=== PATIENT | male | born 1960 ===

== ENCOUNTER 2021-02-15 05:48 | Inpatient (IN) | payer MEDICARE ==
[2021-02-15] MEDS: LISINOPRIL 40 MG TAB PO SCH (22:50)
[2021-02-15] MEDS: QUEtiapine 100 MG TAB PO SCH (22:51)
[2021-02-15] MEDS: traMADol 50 MG TAB PO PRN (22:51)
[2021-02-15] MEDS: PHENYTOIN 100 MG/4 ML ORAL.LIQD PO SCH (22:51)
[2021-02-16] MEDS: PHENYTOIN 100 MG/4 ML ORAL.LIQD PO SCH (05:51)
--- NOTE | 2021-02-16 08:14 | History and Physical Report ---
GP History & Physical - History of Present Illness Date of admission: 02/16/21 History of Present Illness: Per Nurse Note: Behaviors and assessment findings upon admission: [1810 A 60 year old male admitted to [facility], A/O X3, SI/HI with no plan, has been off his medications foe months. Allergic to Risperdal, hx of hypoglycermia and neck surgery. Skin WARM, DRY, INTACT, OLD SCARS AT THE BACK OF HIS NECK,RT. THUMB, RT, left breast, MEDIAL foot scar, lt upper leg scar, stretch butler on bilat upper chest area and small scabs on rt. leg [place] on rt 2nd toe, and lst and 2nd right toes amputations. Pt's belongings contained bugs, are in house keeing closet by the elevators. Valuables sent to security. Staff will continue to monitor. Heaven Saldaña is a 60 year old male admitted from [facility] for SI/HI. In my interview with patient he reports history of Schizophrenia, and Bipolar with multiple inpatient psych admissions. Patient is talkative. Patient reports using Cocaine a week ago when was angry with a couple who disrespected him " I really wanted to hurt them." Patient states" I have been going through a lot and I just got fed up with people; I can't trust people." The patient endorses auditory and states he has intermittent visual hallucinations; patient states voices is telling him " I got to deal with the situation." Patient denies suicidal/homicidal ideation. PAST PSYCHIATRIC HISTORY Diagnoses: schizophrenia, Bipolar Suicide attempts or Self-harm behavior: Denies Prior psychiatric hospitalizations: Multiple Substance Abuse history: Cocaine Previous psychiatric medications tried: [place], Zyprexa Outpatient treatment: yes PAST MEDICAL HISTORY: Hypertension, Neck Surgery, Hypoglycemia Family Psychiatric History: None reported or documented SOCIAL HISTORY Marital Status: Single Living Arrangements: alone Employment Status: Disabled Access to guns/weapons: None reported Education: 11th grade History of Abuse:None reported Legal History: None reported REVIEW OF SYSTEMS Constitutional: Negative for weight loss ENT: Negative for stridor Respiratory: Negative for cough or hemoptysis All other systems reviewed and are negative MENTAL STATUS EXAMINATION General Appearance and Behavior: Age appropriate, dressed appropriately, good eye contact Cooperation: Participating/engaged, but Guarded Psychomotor Behavior: Psychomotor normal Mood: angry Affect and affective range: congruent with states mood Thought Process: illogical Thought Content: Tangential Speech: hyperverbal, flight of ideas, increased tone and pace Intellectual Functioning: Average Suicidal Ideation: Denies SI Homicidal Ideation: Denies HI Hallucinations: auditory and visual Delusions: Yes Impulse Control: Impaired Insight and Judgment: Limited insight and judgment Memory: Impaired Attention: Destractible Orientation: Alert, oriented Assessment and Plan (1)Schizophrenia Current Visit: Yes Status: Acute Treatment Plan Patient admitted for inpatient psychiatric evaluation, medication adjustment and close monitoring The patient's behavior, mood, sleep and appetite will be closely monitored. Patient enrolled in individual and group therapeutic sessions and encouraged to attend. Patient provided with a safe and structured environment. Patient's physical health needs will be addressed by the Hospitalist. Hospitalist Consulted Labs including CBC, CMP, Lipid profile and Hemoglobin A1C levels ordered for baseline reference Social Assessment will be completed and the Statistical Developer will work with patient and family to ensure a suitable and safe disposition Medication adjustment will be made as clinically indicated Start- Seroquel 100mg po BID Start- Zyprexa 5mg po OHS Start- Dilantin 100mg po Q8 hrs Start-tramadol 50mg po Q6 hrs PRN Start Lisinopril 40mg po daily Usual Wellness Sabianism/Preservation: - Start Trazodone 50 mg po QHS & 50 mg po QHS PRN between 10 PM & 2 AM for insomnia - Start Melatonin 5 mg po QHS to promote circadian rhythm - Start [place]-3 for brain health, reduce impulsivity, and as adjunctive treatment for mood disorder, continue upon discharge given overall benefits. - Start B1 prophylaxis with 200 mg po for 5 days The patient agreed on the treatment plan, understood the risk, benefit, alternative treatment, potential consequence of no treatment, and gave informed consent. Initial Certification Inpatient psych services: I certify that the inpatient psychiatric services are required for treatment that could reasonably be expected to improve the patient's condition. Estimated days: 7 Legal Status: Voluntary Patient Problems: Schizophrenia Current Active Problems (Acute) Reaction to Hospitalization: Accepting Medications and Allergies Medications and Allergies Allergies Allergy/AdvReac Type Severity Reaction Status Date / Time risperidone [From Risperdal] Allergy Unknown Unverified 02/15/21 10:17 Home Medications Medication Instructions Recorded Confirmed Last Taken Type FLUoxetine [PROzac] 20 mg PO DAILY 02/16/21 02/16/21 Unknown History OLANzapine [ZyPREXA] 5 mg PO HS 02/16/21 02/16/21 Unknown History Phenytoin [Dilantin] 100 mg PO TID 02/16/21 02/16/21 Unknown History QUEtiapine [SEROquel] 100 mg PO BID 02/16/21 02/16/21 Unknown History lisinopriL [Zestril TAB] 40 mg PO DAILY 02/16/21 02/16/21 Unknown History traMADoL [Ultram 50 MG tab] 50 mg PO Q6HR PRN 02/16/21 02/16/21 Unknown History Active Meds: Active Medications Lisinopril (Lisinopril 40 Mg Tab) 40 mg PO QDAY [facility] Last Admin: 02/15/21 22:50 Dose: 40 mg Documented by: Olanzapine (Olanzapine 5 Mg Tab) 5 mg PO HS [facility] Last Admin: 02/15/21 22:51 Dose: 5 mg Documented by: Phenytoin (Phenytoin 100 Mg/4 Ml Oral.Liqd) 100 mg PO Q8HR [facility] Last Admin: 02/16/21 05:51 Dose: 100 mg Documented by: Quetiapine Fumarate (Quetiapine 100 Mg Tab) 100 mg PO BID [facility] Last Admin: 02/15/21 22:51 Dose: 100 mg Documented by: Tramadol HCl (Tramadol 50 Mg Tab) 50 mg PO Q6H PRN PRN Reason: Pain, Moderate (4-6) Last Admin: 02/15/21 22:51 Dose: 50 mg Documented by: Results - Results Labs/Vitals: Laboratory Last Values POC Glucose 101 mg/dL (70-105) 02/16/21 06:13 Last Vital Signs Temp 98.2 F 02/15/21 22:00 Pulse 52 L 02/15/21 22:50 Resp 18 02/15/21 22:00 BP 154/95 02/15/21 22:50 Pulse Ox Physical Examination - Constitutional Vitals: Vital Signs Temp Pulse Resp BP Pulse Ox 98.2 F 52 L 18 154/95 02/15/21 22:00 02/15/21 22:50 02/15/21 22:00 02/15/21 22:50 Temperature -Last 24 Hours Temperature 98.2 F Mental Status Exam - Vital signs Last Vital Signs Temp 98.2 F 02/15/21 22:00 Pulse 52 L 02/15/21 22:50 Resp 18 02/15/21 22:00 BP 154/95 02/15/21 22:50 Pulse Ox Physician Certification - Certification Statement Physician Certification Statement: This is an acknowledgement statement that HEAVEN SALDAÑA is a 60 year old M who requires inpatient psychiatric admission for treatment which could reasonably be expected to improve the patient's condition for Estimated period of time patient will need to remain in the hospital: [ ] Plan for post-hospital care: [ ]
[2021-02-16] MEDS ORDERED: traMADol 50 MG TAB PO PRN (09:29)
[2021-02-16] MEDS: QUEtiapine 100 MG TAB PO SCH ×2 (09:31→21:28)
[2021-02-16] MEDS: LISINOPRIL 40 MG TAB PO SCH (09:35)
[2021-02-16] MEDS ORDERED: LISINOPRIL 40 MG TAB PO SCH (10:00)
[2021-02-16] MEDS ORDERED: QUEtiapine 100 MG TAB PO SCH (10:00)
[2021-02-16] MEDS: FLUoxetine 20 MG CAP PO SCH (10:31)
[2021-02-16] MEDS: PHENYTOIN 100 MG CAPSULE.ER PO SCH ×2 (13:10→21:27)
[2021-02-16] MEDS: traMADol 50 MG TAB PO PRN (21:30)
[2021-02-17] MEDS: traMADol 50 MG TAB PO PRN ×2 (04:22→19:00)
--- NOTE | 2021-02-17 07:46 | Progress Note ---
Subjective Date of service: 02/17/21 Subjective Comment: Per Nurse Note: Last evening the patient was angry about multiple things. He wrote a list of his complaints and they were put in the gunstock spray unit adjuster's box. He wanted his shoes, jewelry, and clothes from his bag. It was reported to this underwriter solicitation director that his bag has bugs in it. Patient was living in a motel but now states he is homeless. Patient was provided with safety socks and clean scrubs to wear on the unit. He is still unhappy and is upsetting his peers with his behavior. Patient reports si/hi with no plan. Patient has a good appetite and is medication compliant. He asked for PRN Ultram for neck pain at bedtime. It was effective and patient slept. Overnight the patient slept about 4 hours. He then came in and out of his room. He looked sleepy and unsteady on his feet. He wanted to shower at 0300. Patient was redirected that it is too early to shower. He returned to his room and came out around 0430 requesting Ultram again. It was given. Patient stated he needed an x-ray of his neck. He slept around an hour and was up again asking for towels. Patient is too sedated and unsteady and will be given towels later. Will continue to monitor patient for safety. I interviewed the patient this morning. Medical records reviewed and patient's progress was discussed with unit staff. In my interview with the patient this morning, the patient reports he is feeling better. Patient continues to complain about his clothes and shoes; this underwriter solicitation director discussed patient's complain with the staff. Patient reports mood as "Ok" states he was having racing thoughts and AVHs but states it is "slowing down." Appetite is good. Sleep last night was fair. Patient denies current SI/HI, but continues to have intermittent AVH's. REVIEW OF SYSTEMS Constitutional: Negative for weight loss ENT: Negative for stridor Respiratory: Negative for cough or hemoptysis All other systems reviewed and are negative MENTAL STATUS EXAMINATION General Appearance and Behavior: Age appropriate, dressed appropriately, good eye contact Cooperation: Participating/engaged, but Guarded Psychomotor Behavior: Psychomotor normal Mood: "OK" Affect and affective range: congruent with states mood Thought Process: illogical Thought Content: obsessions Speech: hyperverbal, flight of ideas, increased tone and pace Intellectual Functioning: Average Suicidal Ideation: Denies SI Homicidal Ideation: Denies HI Hallucinations: Auditory and Visual Delusions: Yes Impulse Control: Impaired Insight and Judgment: Limited insight and judgment Memory: Impaired Attention: Destractible Orientation: Alert, oriented Assessment and Plan (1)Schizophrenia Current Visit: Yes Status: Acute Treatment Plan Patient admitted for inpatient psychiatric evaluation, medication adjustment and close monitoring The patient's behavior, mood, sleep and appetite will be closely monitored. Patient enrolled in individual and group therapeutic sessions and encouraged to attend. Patient provided with a safe and structured environment. Patient's physical health needs will be addressed by the Hospitalist. Hospitalist Consulted Labs including CBC, CMP, Lipid profile and Hemoglobin A1C levels ordered for baseline reference Social Assessment will be completed and the Senior Nurse Manager will work with patient and family to ensure a suitable and safe disposition Medication adjustment will be made as clinically indicated Continue- Seroquel 100mg po BID Continue- Zyprexa 5mg po OHS Copntinue- Dilantin 100mg po Q8 hrs Continue-Tramadol 50mg po Q6 hrs PRN Continue- Lisinopril 40mg po daily Usual Wellness Advent/Preservation: - Start Trazodone 50 mg po QHS & 50 mg po QHS PRN between 10 PM & 2 AM for insomnia - Start Melatonin 5 mg po QHS to promote circadian rhythm - Start [place]-3 for brain health, reduce impulsivity, and as adjunctive zach tment for mood disorder, continue upon discharge given overall benefits. - Start B1 prophylaxis with 200 mg po for 5 days The patient agreed on the treatment plan, understood the risk, benefit, alte rnative treatment, potential consequence of no treatment, and gave informed consent. Initial Certification Inpatient psych services: I certify that the inpatient psychiatric services are required for treatment that could reasonably be expected to improve the patient's condition. Estimated days: 5 Legal Status: Voluntary Patient Problems: Schizophrenia Current Active Problems (Acute) Reaction to Hospitalization: Accepting Medications and Allergies Medications and Allergies Allergies Allergy/AdvReac Type Severity Reaction Status Date / Time risperidone [From Risperdal] AdvReac Intermediate Unknown Verified 02/16/21 22:45 Home Medications Medication Instructions Recorded Confirmed Last Taken Type FLUoxetine [PROzac] 20 mg PO DAILY 02/16/21 02/16/21 Unknown History OLANzapine [ZyPREXA] 5 mg PO HS 02/16/21 02/16/21 Unknown History Phenytoin [Dilantin] 100 mg PO TID 02/16/21 02/16/21 Unknown History QUEtiapine [SEROquel] 100 mg PO BID 02/16/21 02/16/21 Unknown History lisinopriL [Zestril TAB] 40 mg PO DAILY 02/16/21 02/16/21 Unknown History traMADoL [Ultram 50 MG tab] 50 mg PO Q6HR PRN 02/16/21 02/16/21 Unknown History Active Meds: Active Medications Fluoxetine HCl (Fluoxetine 20 Mg Cap) 20 mg PO DAILY [facility] Last Admin: 02/16/21 10:31 Dose: 20 mg Documented by: Lisinopril (Lisinopril 40 Mg Tab) 40 mg PO QDAY [facility] Last Admin: 02/16/21 09:35 Dose: Not Given Documented by: Olanzapine (Olanzapine 5 Mg Tab) 5 mg PO HS [facility] Last Admin: 02/16/21 21:28 Dose: 5 mg Documented by: Phenytoin (Phenytoin 100 Mg Capsule.Er) 100 mg PO TID [facility] Last Admin: 02/16/21 21:27 Dose: 100 mg Documented by: Quetiapine Fumarate (Quetiapine 100 Mg Tab) 100 mg PO BID [facility] Last Admin: 02/16/21 21:28 Dose: 100 mg Documented by: Tramadol HCl (Tramadol 50 Mg Tab) 50 mg PO Q6H PRN PRN Reason: Pain, Moderate (4-6) Last Admin: 02/17/21 04:22 Dose: 50 mg Documented by: Results - Results Labs/Vitals: Laboratory Last Values POC Glucose 94 mg/dL (70-105) 02/17/21 07:21 Last Vital Signs Temp 98.0 F 02/16/21 19:43 Pulse 58 L 02/16/21 19:43 Resp 16 02/17/21 04:22 BP 132/83 02/16/21 19:43 Pulse Ox 96 02/16/21 19:43
[2021-02-17] MEDS: PHENYTOIN 100 MG CAPSULE.ER PO SCH ×3 (09:15→21:06)
[2021-02-17] MEDS: QUEtiapine 100 MG TAB PO SCH ×2 (09:15→21:06)
[2021-02-17] MEDS: FLUoxetine 20 MG CAP PO SCH (09:15)
[2021-02-17] MEDS: LISINOPRIL 40 MG TAB PO SCH (09:16)
[2021-02-18 00:02] LABS: Basophils % (Auto) 0.4 % (0.0-1.8); Eosinophils # (Auto) 0.2 K/mm3 (0.0-0.4); Eosinophils % (Auto) 4.2 % (0.0-4.3); Hemoglobin 12.6 gm/dl (11.8-15.2); Lymphocytes # (Auto) 1.7 K/mm3 (1.2-5.4); Lymphocytes % (Auto) 38.9 % (13.4-35.0); Mean Corpuscular HGB Conc 32 % (32-34); Mean Corpuscular Volume 77 fl (84-94); Monocytes # (Auto) 0.3 K/mm3 (0.0-0.8); Monocytes % (Auto) 6.9 % (0.0-7.3); Platelet Count 171 K/mm3 (140-440); Red Blood Count 5.22 M/mm3 (3.65-5.03)
[2021-02-18 00:26] LABS: Hepatitis B Surface Antigen Non-Reactive (Negative); Hepatitis C Virus Antibody Non-Reactive (NonReactive)
[2021-02-18] MEDS: traMADol 50 MG TAB PO PRN ×3 (00:47→22:14)
[2021-02-18 02:49] LABS: Alanine Aminotransferase 15 units/L (7-56); Albumin 3.6 g/dL (3.9-5); BUN/Creatinine Ratio 21; Blood Urea Nitrogen 19 mg/dL (9-20); Calcium 9.3 mg/dL (8.4-10.2); Chol/HDL Ratio 2.89 %; HDL Cholesterol 38 mg/dL (40-59); Hemolysis Index 6; LDL Cholesterol,Direct 62 mg/dL (50-130)
--- NOTE | 2021-02-18 08:23 | Progress Note ---
Subjective Date of service: 02/18/21 Subjective Comment: Last evening the patient started the beginning of the shift asking for everything he was not allowed to have during day shift. He was irritable and becomes angry when he can not have what he wants. He denies si/hi/ah/vh. His appetite is good and he is medication compliant. During evening medications the patient wanted to know why [place] had not been ordered for him. This marine underwriter assured him that the provider would be notified of his question in the morning. I interviewed the patient this morning. Medical records reviewed and patient's progress was discussed with unit staff. In my interview with the patient this morning, the patient is angry and req uesting for his clothes and shoes.This marine underwriter explained why he is not getting his clothes at this time. Patient reports mood as "alright". Patient continues to endorse racing thoughts and AVHs but states "everything is coming down." Patient denies SI/HI. REVIEW OF SYSTEMS Constitutional: Negative for weight loss ENT: Negative for stridor Respiratory: Negative for cough or hemoptysis All other systems reviewed and are negative MENTAL STATUS EXAMINATION General Appearance and Behavior: Age appropriate, dressed appropriately, good eye contact Cooperation: Participating/engaged Psychomotor Behavior: Psychomotor normal Mood: "alright" Affect and affective range: congruent with states mood Thought Process: illogical Thought Content: obsessions Speech: hyperverbal, flight of ideas, increased tone and pace Intellectual Functioning: Average Suicidal Ideation: Denies SI Homicidal Ideation: Denies HI Hallucinations: Auditory and Visual Delusions: No Impulse Control: Impaired Insight and Judgment: Limited insight and judgment Memory: Impaired Attention: Destractible Orientation: Alert, oriented Assessment and Plan (1)Schizophrenia Current Visit: Yes Status: Acute Treatment Plan Patient admitted for inpatient psychiatric evaluation, medication adjustment and close monitoring The patient's behavior, mood, sleep and appetite will be closely monitored. Patient enrolled in individual and group therapeutic sessions and encouraged to attend. Patient provided with a safe and structured environment. Patient's physical health needs will be addressed by the Hospitalist. Hospitalist Consulted Labs including CBC, CMP, Lipid profile and Hemoglobin A1C levels ordered for baseline reference Social Assessment will be completed and the Librarian Helper will work with patient and family to ensure a suitable and safe disposition Medication adjustment will be made as clinically indicated Continue- Seroquel 100mg po BID Continue- Zyprexa 5mg po OHS Copntinue- Dilantin 100mg po Q8 hrs Continue-Tramadol 50mg po Q6 hrs PRN Continue- Lisinopril 40mg po daily Usual Wellness Restorationist/Preservation: - Start Trazodone 50 mg po QHS & 50 mg po QHS PRN between 10 PM & 2 AM for insomnia - Start Melatonin 5 mg po QHS to promote circadian rhythm - Start [place]-3 for brain health, reduce impulsivity, and as adjunctive treatment for mood disorder, continue upon discharge given overall benefits. - Start B1 prophylaxis with 200 mg po for 5 days The patient agreed on the treatment plan, understood the risk, benefit, alternative treatment, potential consequence of no treatment, and gave informed consent. Initial Certification Inpatient psych services: I certify that the inpatient psychiatric services are required for treatment that could reasonably be expected to improve the patient's condition. Estimated days: 5 Legal Status: Voluntary Patient Problems: Schizophrenia Current Active Problems (Acute) Reaction to Hospitalization: Accepting Medications and Allergies Medications and Allergies Allergies Allergy/AdvReac Type Severity Reaction Status Date / Time risperidone [From Risperdal] AdvReac Intermediate Unknown Verified 02/16/21 22:45 Home Medications Medication Instructions Recorded Confirmed Last Taken Type FLUoxetine [PROzac] 20 mg PO DAILY 02/16/21 02/16/21 Unknown History OLANzapine [ZyPREXA] 5 mg PO HS 02/16/21 02/16/21 Unknown History Phenytoin [Dilantin] 100 mg PO TID 02/16/21 02/16/21 Unknown History QUEtiapine [SEROquel] 100 mg PO BID 02/16/21 02/16/21 Unknown History lisinopriL [Zestril TAB] 40 mg PO DAILY 02/16/21 02/16/21 Unknown History traMADoL [Ultram 50 MG tab] 50 mg PO Q6HR PRN 02/16/21 02/16/21 Unknown History Active Meds: Active Medications Fluoxetine HCl (Fluoxetine 20 Mg Cap) 20 mg PO DAILY [facility] Last Admin: 02/17/21 09:15 Dose: 20 mg Documented by: Lisinopril (Lisinopril 40 Mg Tab) 40 mg PO QDAY [facility] Last Admin: 02/17/21 09:16 Dose: 40 mg Documented by: Olanzapine (Olanzapine 5 Mg Tab) 5 mg PO HS [facility] Last Admin: 02/17/21 21:06 Dose: 5 mg Documented by: Phenytoin (Phenytoin 100 Mg Capsule.Er) 100 mg PO TID [facility] Last Admin: 02/17/21 21:06 Dose: 100 mg Documented by: Quetiapine Fumarate (Quetiapine 100 Mg Tab) 100 mg PO BID [facility] Last Admin: 02/17/21 21:06 Dose: 100 mg Documented by: Tramadol HCl (Tramadol 50 Mg Tab) 50 mg PO Q6H PRN PRN Reason: Pain, Moderate (4-6) Last Admin: 02/18/21 00:47 Dose: 50 mg Documented by: Results - Results Labs/Vitals: Laboratory Last Values WBC 4.4 K/mm3 (4.5-11.0) L 02/17/21 23:26 RBC 5.22 M/mm3 (3.65-5.03) H 02/17/21 23:26 Hgb 12.6 gm/dl (11.8-15.2) 02/17/21 23:26 Hct 40.0 % (35.5-45.6) 02/17/21 23:26 MCV 77 fl (84-94) L 02/17/21 23:26 MCH 24 pg (28-32) L 02/17/21 23:26 MCHC 32 % (32-34) 02/17/21 23:26 RDW 17.0 % (13.2-15.2) H 02/17/21 23:26 Plt Count 171 K/mm3 (140-440) 02/17/21 23:26 Lymph % (Auto) 38.9 % (13.4-35.0) H 02/17/21 23:26 [place] % (Auto) 6.9 % (0.0-7.3) 02/17/21 23: Eos % (Auto) 4.2 % (0.0-4.3) 02/17/21 23: Baso % (Auto) 0.4 % (0.0-1.8) 02/17/21 23: Lymph # (Auto) 1.7 K/mm3 (1.2-5.4) 02/17/21 23:26 [place] # (Auto) 0.3 K/mm3 (0.0-0.8) 02/17/21 23:26 Eos # (Auto) 0.2 K/mm3 (0.0-0.4) 02/17/21 23:26 Baso # (Auto) 0.0 K/mm3 (0.0-0.1) 02/17/21 23:26 Seg Neutrophils % 49.6 % (40.0-70.0) 02/17/21 23:26 Seg Neutrophils # 2.2 K/mm3 (1.8-7.7) 02/17/21 23:26 Sodium 140 mmol/L (137-145) 02/17/21 23:26 Potassium 4.3 mmol/L (3.6-5.0) 02/17/21 23:26 Chloride 103.2 mmol/L (98-107) 02/17/21 23:26 Carbon Dioxide 26 mmol/L (22-30) 02/17/21 23:26 Anion Gap 15 mmol/L 02/17/21 23:26 BUN 19 mg/dL (9-20) 02/17/21 23:26 Creatinine 0.9 mg/dL (0.8-1.3) 02/17/21 23:26 Estimated GFR > 60 ml/min 02/17/21 23:26 BUN/Creatinine Ratio 21 % 02/17/21 23:26 Glucose 95 mg/dL (75-100) 02/17/21 23:26 POC Glucose 84 mg/dL (70-105) 02/18/21 07:33 Calcium 9.3 mg/dL (8.4-10.2) 02/17/21 23:26 Total Bilirubin 0.20 mg/dL (0.1-1.2) 02/17/21 23:26 AST 19 units/L (5-40) 02/17/21 23:26 ALT 15 units/L (7-56) 02/17/21 23:26 Alkaline Phosphatase 87 units/L (35-129) 02/17/21 23:26 Total Protein 6.1 g/dL (6.3-8.2) L 02/17/21 23:26 Albumin 3.6 g/dL (3.9-5) L 02/17/21 23:26 Albumin/Globulin Ratio 1.4 % 02/17/21 23:26 Triglycerides 105 mg/dL (2-149) 02/17/21 23:26 Cholesterol 110 mg/dL (50-199) 02/17/21 23:26 LDL Cholesterol Direct 62 mg/dL (50-130) 02/17/21 23:26 HDL Cholesterol 38 mg/dL (40-59) L 02/17/21 23:26 Cholesterol/HDL Ratio 2.89 % 02/17/21 23:26 TSH 1.380 mlU/mL (0.270-4.200) 02/17/21 23: [place] 0.1 mmol/L (0.0-1.2) 02/17/21 23:26 Hepatitis A IgM Ab Non-reactive (NonReactive) 02/17/21 23:26 Hep Bs Antigen Non-reactive (Negative) 02/17/21 23: Hep B Core IgM Ab Non-reactive (NonReactive) 02/17/21 23: Hepatitis C Antibody Non-reactive (NonReactive) 02/17/21 23:26 Last Vital Signs Temp 97.0 F L 02/18/21 07:22 Pulse 52 L 02/18/21 07:25 Resp 18 02/18/21 07:22 BP 156/100 02/18/21 07:22 Pulse Ox 97 02/18/21 07:25
[2021-02-18] MEDS: LISINOPRIL 40 MG TAB PO SCH (11:07)
[2021-02-18] MEDS: QUEtiapine 100 MG TAB PO SCH ×2 (11:08→21:11)
[2021-02-18] MEDS: FLUoxetine 20 MG CAP PO SCH (11:08)
[2021-02-18] MEDS: PHENYTOIN 100 MG CAPSULE.ER PO SCH ×3 (11:09→21:11)
--- NOTE | 2021-02-18 19:37 | Consultation ---
History of Present Illness - Reason for Consult Consult date: 02/18/21 Medical Management Requesting physician: LEXY NICHOLSON - History of Present Illness 61 YO Male with HTN, Obesity, PSA, Schizophrenia admitted to [facility] for psychiatric stabilization. Consult placed by for medical management. Patient seen and evaluated in the recreation room. Patient has fever, chills, chest pain, palpitation, adductive cough, skin rash, recent ill contact, or known exposure to COVID-19. No reported nursing events. Past History Past Medical History: hypertension, other (See HPI) Past Surgical History: No surgical history, Other (Reviewed) Social history: single Family history: no significant family history, other (Reviewed) Medications and Allergies Allergies Allergy/AdvReac Type Severity Reaction Status Date / Time risperidone [From Risperdal] AdvReac Intermediate Unknown Verified 02/16/21 22:45 Home Medications Medication Instructions Recorded Confirmed Last Taken Type FLUoxetine [PROzac] 20 mg PO DAILY 02/16/21 02/16/21 Unknown History OLANzapine [ZyPREXA] 5 mg PO HS 02/16/21 02/16/21 Unknown History Phenytoin [Dilantin] 100 mg PO TID 02/16/21 02/16/21 Unknown History QUEtiapine [SEROquel] 100 mg PO BID 02/16/21 02/16/21 Unknown History lisinopriL [Zestril TAB] 40 mg PO DAILY 02/16/21 02/16/21 Unknown History traMADoL [Ultram 50 MG tab] 50 mg PO Q6HR PRN 02/16/21 02/16/21 Unknown History Active Meds: Active Medications Fluoxetine HCl (Fluoxetine 20 Mg Cap) 20 mg PO DAILY [facility] Last Admin: 02/18/21 11:08 Dose: 20 mg Documented by: Lisinopril (Lisinopril 40 Mg Tab) 40 mg PO QDAY [facility] Last Admin: 02/18/21 11:07 Dose: 40 mg Documented by: Olanzapine (Olanzapine 5 Mg Tab) 5 mg PO HS [facility] Last Admin: 02/17/21 21:06 Dose: 5 mg Documented by: Phenytoin (Phenytoin 100 Mg Capsule.Er) 100 mg PO TID [facility] Last Admin: 02/18/21 15:21 Dose: 100 mg Documented by: Quetiapine Fumarate (Quetiapine 100 Mg Tab) 100 mg PO BID [facility] Last Admin: 02/18/21 11:08 Dose: 100 mg Documented by: Tramadol HCl (Tramadol 50 Mg Tab) 50 mg PO Q6H PRN PRN Reason: Pain, Moderate (4-6) Last Admin: 02/18/21 11:10 Dose: 50 mg Documented by: Review of Systems Constitutional: no weight loss, no weight gain, no chills Ears, nose, mouth and throat: no ear pain, no tinnitis, no nasal congestion Cardiovascular: no chest pain, no palpitations, no edema, no syncope Respiratory: no cough, no excessive sputum, no shortness of breath, no dyspnea on exertion Gastrointestinal: no nausea, no diarrhea, no change in bowel habits Genitourinary Male: no hematuria, no flank pain, no discharge, no urinary frequency, no urinary hesitancy Rectal: no pain, no incontinence, no bleeding Musculoskeletal: no neck stiffness, no shooting arm pain, no low back pain Integumentary: no rash, no pruritis, no sores, no wounds Neurological: no head injury, no transient paralysis, no parathesias, no tingling, no syncope Psychiatric: suicidal ideation, hopelessness, no anxiety Endocrine: no cold intolerance, no heat intolerance, no excessive thirst, no polyuria, no nocturia Hematologic/Lymphatic: no easy bruising, no easy bleeding, no lymphadenopathy Allergic/Immunologic: no urticaria, no wheezing, no persistent infections, no angioedema Exam - Constitutional Vitals: Temp Pulse Resp BP Pulse Ox 97.5 F L 62 16 139/89 96 02/18/21 19:24 02/18/21 19:24 02/18/21 19:24 02/18/21 19:24 02/18/21 19:24 General appearance: Present: obese - EENT Eyes: Present: PERRL ENT: hearing intact, clear oral mucosa - Neck Neck: Present: supple, normal ROM - Respiratory Respiratory effort: normal Respiratory: bilateral: CTA - Cardiovascular Heart Sounds: Present: S1 & S2. Absent: rub, click - Extremities Extremities: pulses symmetrical, No edema Peripheral Pulses: within normal limits - Abdominal General gastrointestinal: Present: soft, non-tender, non-distended, normal bowel sounds Male genitourinary: Present: normal - Integumentary Integumentary: Present: clear, warm, dry - Musculoskeletal Musculoskeletal: gait normal, strength equal bilaterally - Psychiatric Psychiatric: appropriate mood/affect, intact judgment & insight - Neurologic Neurologic: CNII-XII intact, moves all extremities Results - Labs CBC & Chem 7: 02/17/21 23:26 02/17/21 23:26 Labs: Abnormal lab results 02/17/21 02/17/21 02/17/21 Range/Units 20:15 23:26 23:26 WBC 4.4 L (4.5-11.0) K/mm3 RBC 5.22 H (3.65-5.03) M/mm3 MCV 77 L (84-94) fl MCH 24 L (28-32) pg RDW 17.0 H (13.2-15.2) % Lymph % (Auto) 38.9 H (13.4-35.0) % POC Glucose 110 H (70-105) mg/dL Total Protein 6.1 L (6.3-8.2) g/dL Albumin 3.6 L (3.9-5) g/dL HDL Cholesterol 38 L (40-59) mg/dL Assessment and Plan - Patient Problems (1) Hypertension Current Visit: Yes Status: Acute Qualifiers: Hypertension type: essential hypertension Qualified Code(s): I10 - Essential (primary) hypertension Plan to address problem: Resume prehospital medication, continue medical management, blood pressure every shift (2) Obesity Current Visit: Yes Status: Acute Plan to address problem: Balanced diet, increase physical activity at discharge (3) Schizophrenia Current Visit: Yes Status: Acute Plan to address problem: Continue medical management.
--- NOTE | 2021-02-19 08:47 | Progress Note ---
Subjective Date of service: 02/19/21 Subjective Comment: Per Nurse Note: pt was less irritable last evening, he interacts well with peers and staff, medication compliant, good appetite, tramadol 50mg po was given last night with bedtime medication for neck pain with good result, pt rested for 6hr plus, no distress noted, will continue to monitor for safety. Patient was seen this morning in the activity room. He reports feeling better but continues to complain about his clothes" I'm a little frustrated but I can tell the difference in mybody." He states sleep and appetite as good. He denies any current suicidal/ homicidal ideation however, he continues to endorse intermittent AVHS. REVIEW OF SYSTEMS Constitutional: Negative for weight loss ENT: Negative for stridor Respiratory: Negative for cough or hemoptysis All other systems reviewed and are negative MENTAL STATUS EXAMINATION General Appearance and Behavior: Age appropriate, dressed appropriately, good eye contact Cooperation: Participating/engaged Psychomotor Behavior: Psychomotor normal Mood: "good" Affect and affective range: congruent with states mood Thought Process: illogical Thought Content: obsessions Speech: hyperverbal, flight of ideas, increased tone and pace Intellectual Functioning: Average Suicidal Ideation: Denies SI Homicidal Ideation: Denies HI Hallucinations: Auditory and Visual Delusions: No Impulse Control: Impaired Insight and Judgment: Limited insight and judgment Memory: Intact Attention: Destractible Orientation: Alert, oriented Assessment and Plan (1)Schizophrenia Current Visit: Yes Status: Acute Treatment Plan Patient admitted for inpatient psychiatric evaluation, medication adjustment and close monitoring The patient's behavior, mood, sleep and appetite will be closely monitored. Patient enrolled in individual and group therapeutic sessions and encouraged to attend. Patient provided with a safe and structured environment. Patient's physical health needs will be addressed by the Hospitalist. Hospitalist Consulted Labs including CBC, CMP, Lipid profile and Hemoglobin A1C levels ordered for baseline reference Social Assessment will be completed and the Horticulture Superintendent will work with patient and family to ensure a suitable and safe disposition Medication adjustment will be made as clinically indicated Continue- Seroquel 100mg po BID Continue- Zyprexa 5mg po OHS Copntinue- Dilantin 100mg po Q8 hrs Continue-Tramadol 50mg po Q6 hrs PRN Continue- Lisinopril 40mg po daily Usual Wellness Spiritism/Preservation: - Start Trazodone 50 mg po QHS & 50 mg po QHS PRN between 10 PM & 2 AM for insomnia - Start Melatonin 5 mg po QHS to promote circadian rhythm - Start [place]-3 for brain health, reduce impulsivity, and as adjunctive treatment for mood disorder, continue upon discharge given overall benefits. - Start B1 prophylaxis with 200 mg po for 5 days The patient agreed on the treatment plan, understood the risk, benefit, alternative treatment, potential consequence of no treatment, and gave informed consent. Initial Certification Inpatient psych services: I certify that the inpatient psychiatric services are required for treatment that could reasonably be expected to improve the patient's condition. Estimated days: 4 Legal Status: Voluntary Patient Problems: Schizophrenia Current Active Problems (Acute) Reaction to Hospitalization: Accepting Medications and Allergies Allergies Allergy/AdvReac Type Severity Reaction Status Date / Time risperidone [From Risperdal] AdvReac Intermediate Unknown Verified 02/16/21 22: 45 Home Medications Medication Instructions Recorded Confirmed Last Taken Type FLUoxetine [PROzac] 20 mg PO DAILY 02/16/21 02/16/21 Unknown History OLANzapine [ZyPREXA] 5 mg PO HS 02/16/21 02/16/21 Unknown History Phenytoin [Dilantin] 100 mg PO TID 02/16/21 02/16/21 Unknown History QUEtiapine [SEROquel] 100 mg PO BID 02/16/21 02/16/21 Unknown History lisinopriL [Zestril TAB] 40 mg PO DAILY 02/16/21 02/16/21 Unknown History traMADoL [Ultram 50 MG tab] 50 mg PO Q6HR PRN 02/16/21 02/16/21 Unknown History Active Meds: Active Medications Fluoxetine HCl (Fluoxetine 20 Mg Cap) 20 mg PO DAILY [facility] Last Admin: 02/18/21 11:08 Dose: 20 mg Documented by: Lisinopril (Lisinopril 40 Mg Tab) 40 mg PO QDAY [facility] Last Admin: 02/18/21 11:07 Dose: 40 mg Documented by: Olanzapine (Olanzapine 5 Mg Tab) 5 mg PO [facility] Last Admin: 02/18/21 21:11 Dose: 5 mg Documented by: Phenytoin (Phenytoin 100 Mg Capsule.Er) 100 mg PO TID [facility] Last Admin: 02/18/21 21:11 Dose: 100 mg Documented by: Quetiapine Fumarate (Quetiapine 100 Mg Tab) 100 mg PO BID [facility] Last Admin: 02/18/21 21:11 Dose: 100 mg Documented by: Tramadol HCl (Tramadol 50 Mg Tab) 50 mg PO Q6H PRN PRN Reason: Pain, Moderate (4-6) Last Admin: 02/18/21 22:14 Dose: 50 mg Documented by: Results - Results Labs/Vitals: Laboratory Last Values WBC 4.4 K/mm3 (4.5-11.0) L 02/17/21 23:26 RBC 5.22 M/mm3 (3.65-5.03) H 02/17/21 23:26 Hgb 12.6 gm/dl (11.8-15.2) 02/17/21 23: Hct 40.0 % (35.5-45.6) 02/17/21 23: MCV 77 fl (84-94) L 02/17/21 23: MCH 24 pg (28-32) L 02/17/21 23: MCHC 32 % (32-34) 02/17/21 23: RDW 17.0 % (13.2-15.2) H 02/17/21 23:26 Plt Count 171 K/mm3 (140-440) 02/17/21 23:26 Lymph % (Auto) 38.9 % (13.4-35.0) H 02/17/21 23: [place] % (Auto) 6.9 % (0.0-7.3) 02/17/21 23: Eos % (Auto) 4.2 % (0.0-4.3) 02/17/21 23: Baso % (Auto) 0.4 % (0.0-1.8) 02/17/21 23: Lymph # (Auto) 1.7 K/mm3 (1.2-5.4) 02/17/21 23: [place] # (Auto) 0.3 K/mm3 (0.0-0.8) 02/17/21 23: Eos # (Auto) 0.2 K/mm3 (0.0-0.4) 02/17/21 23: Baso # (Auto) 0.0 K/mm3 (0.0-0.1) 02/17/21 23: Seg Neutrophils % 49.6 % (40.0-70.0) 02/17/21 23:26 Seg Neutrophils # 2.2 K/mm3 (1.8-7.7) 02/17/21 23:26 Sodium 140 mmol/L (137-145) 02/17/21 23:26 Potassium 4.3 mmol/L (3.6-5.0) 02/17/21 23:26 Chloride 103.2 mmol/L (98-107) 02/17/21 23:26 Carbon Dioxide 26 mmol/L (22-30) 02/17/21 23:26 Anion Gap 15 mmol/L 02/17/21 23:26 BUN 19 mg/dL (9-20) 02/17/21 23:26 Creatinine 0.9 mg/dL (0.8-1.3) 02/17/21 23:26 Estimated GFR > 60 ml/min 02/17/21 23:26 BUN/Creatinine Ratio 21 % 02/17/21 23:26 Glucose 95 mg/dL (75-100) 02/17/21 23:26 POC Glucose 101 mg/dL (70-105) 02/19/21 06:13 Calcium 9.3 mg/dL (8.4-10.2) 02/17/21 23:26 Total Bilirubin 0.20 mg/dL (0.1-1.2) 02/17/21 23:26 AST 19 units/L (5-40) 02/17/21 23:26 ALT 15 units/L (7-56) 02/17/21 23:26 Alkaline Phosphatase 87 units/L (35-129) 02/17/21 23:26 Total Protein 6.1 g/dL (6.3-8.2) L 02/17/21 23:26 Albumin 3.6 g/dL (3.9-5) L 02/17/21 23:26 Albumin/Globulin Ratio 1.4 % 02/17/21 23:26 Triglycerides 105 mg/dL (2-149) 02/17/21 23:26 Cholesterol 110 mg/dL (50-199) 02/17/21 23:26 LDL Cholesterol Direct 62 mg/dL (50-130) 02/17/21 23:26 HDL Cholesterol 38 mg/dL (40-59) L 02/17/21 23:26 Cholesterol/HDL Ratio 2.89 % 02/17/21 23:26 TSH 1.380 mlU/mL (0.270-4.200) 02/17/21 23:26 [place] 0.1 mmol/L (0.0-1.2) 02/17/21 23:26 Hepatitis A IgM Ab Non-reactive (NonReactive) 02/17/21 23:26 Hep Bs Antigen Non-reactive (Negative) 02/17/21 23:26 Hep B Core IgM Ab Non-reactive (NonReactive) 02/17/21 23: Hepatitis C Antibody Non-reactive (NonReactive) 02/17/21 23:26 Last Vital Signs Temp 97.5 F L 02/18/21 19:24 Pulse 62 02/18/21 19:24 Resp 18 02/18/21 22:14 BP 139/89 02/18/21 19:24 Pulse Ox 96 02/18/21 19:24
[2021-02-19] MEDS: QUEtiapine 100 MG TAB PO SCH ×2 (09:59→21:34)
[2021-02-19] MEDS: FLUoxetine 20 MG CAP PO SCH (09:59)
[2021-02-19] MEDS: PHENYTOIN 100 MG CAPSULE.ER PO SCH ×3 (09:59→20:50)
[2021-02-19] MEDS: traMADol 50 MG TAB PO PRN ×2 (10:02→22:23)
[2021-02-19] MEDS: LISINOPRIL 40 MG TAB PO SCH (10:20)
[2021-02-20] MEDS: traMADol 50 MG TAB PO PRN (04:35)
--- NOTE | 2021-02-20 08:19 | Progress Note ---
Subjective Date of service: 02/20/21 Subjective Comment: Per Nurse Note: Last evening the patient was calm and cooperative. He was mildly irritable. Numerous requests. He denies si/hi/ah/vh. His appetite is good and he is medication compliant. Overnight the patient rested and slept until 12 midnight. He woke to ask the time so he could get Ultram. Patient stays awake at night to get next dose. He was irritable overnight. He kept going into the hallway and talking loudly with a peer. He was asked to not carry on conv ersations at night when he should be sleeping. He makes negative comments and when staff is not watching he will do it again. He slept 3 hours. Will continue to monitor patient for safety. Patient was seen eating breakfast in the activity room. Patient states he has an appointment with his trial attorney on Thursday and would like to be discharge on Thursday. Patient states he will be staying with his niece in [place]. Per nurse, patient was up all night requesting for Ultram; discussed scheduling Ultram with patient is receptive to the change. Patient reports mood as "good." He states he feels better. He denies racing thoughts, SI/HI but continues to have intermittent AVHs. Patient reports sleep and appetite as good. REVIEW OF SYSTEMS Constitutional: Negative for weight loss ENT: Negative for stridor Respiratory: Negative for cough or hemoptysis All other systems reviewed and are negative MENTAL STATUS EXAMINATION General Appearance and Behavior: Age appropriate, dressed appropriately, good eye contact Cooperation: Participating/engaged Psychomotor Behavior: Psychomotor normal Mood: "good" Affect and affective range: congruent with states mood Thought Process: logical Thought Content: goal directed Speech: Normal Intellectual Functioning: Average Suicidal Ideation: Denies SI Homicidal Ideation: Denies HI Hallucinations: Auditory and Visual Delusions: No Impulse Control: Impaired Insight and Judgment:fair insight and judgment Memory: Intact Attention: Destractible Orientation: Alert, oriented Assessment and Plan (1)Schizophrenia Current Visit: Yes Status: Acute Treatment Plan Patient admitted for inpatient psychiatric evaluation, medication adjustment and close monitoring The patient's behavior, mood, sleep and appetite will be closely monitored. Patient enrolled in individual and group therapeutic sessions and encouraged to attend. Patient provided with a safe and structured environment. Patient's physical health needs will be addressed by the Hospitalist. Hospitalist Consulted Labs including CBC, CMP, Lipid profile and Hemoglobin A1C levels ordered for baseline reference Social Assessment will be completed and the Dispatch Supervisor will work with patient and family to ensure a suitable and safe disposition Medication adjustment will be made as clinically indicated Continue- Seroquel 100mg po BID Continue- Zyprexa 5mg po OHS Copntinue- Dilantin 100mg po Q8 hrs Start-Tramadol 50mg po BID Continue- Lisinopril 40mg po daily Usual Wellness Congregation/Preservation: - Start Trazodone 50 mg po QHS & 50 mg po QHS PRN between 10 PM & 2 AM for insomnia - Start Melatonin 5 mg po QHS to promote circadian rhythm - Start [place]-3 for brain health, reduce impulsivity, and as adjunctive treatment for mood disorder, continue upon discharge given overall benefits. - Start B1 prophylaxis with 200 mg po for 5 days The patient agreed on the treatment plan, understood the risk, benefit, alternative treatment, potential consequence of no treatment, and gave informed consent. Initial Certification Inpatient psych services: I certify that the inpatient psychiatric services are required for treatment that could reasonably be expected to improve the patient's condition. Estimated days: 4 Legal Status: Voluntary Patient Problems: Schizophrenia Current Active Problems (Acute) Reaction to Hospitalization: Accepting Medications and Allergies Allergies Allergy/AdvReac Type Severity Reaction Status Date / Time risperidone [From Risperdal] AdvReac Intermediate Unknown Verified 02/16/21 22:45 Home Medications Medication Instructions Recorded Confirmed Last Taken Type FLUoxetine [PROzac] 20 mg PO DAILY 02/16/21 02/16/21 Unknown History OLANzapine [ZyPREXA] 5 mg PO HS 02/16/21 02/16/21 Unknown History Phenytoin [Dilantin] 100 mg PO TID 02/16/21 02/16/21 Unknown History QUEtiapine [SEROquel] 100 mg PO BID 02/16/21 02/16/21 Unknown History lisinopriL [Zestril TAB] 40 mg PO DAILY 02/16/21 02/16/21 Unknown History traMADoL [Ultram 50 MG tab] 50 mg PO Q6HR PRN 02/16/21 02/16/21 Unknown History Active Meds: Active Medications Fluoxetine HCl (Fluoxetine 20 Mg Cap) 20 mg PO DAILY [facility] Last Admin: 02/19/21 09:59 Dose: 20 mg Documented by: Lisinopril (Lisinopril 40 Mg Tab) 40 mg PO QDAY [facility] Last Admin: 02/19/21 10:20 Dose: 40 mg Documented by: Olanzapine (Olanzapine 5 Mg Tab) 5 mg PO HS [facility] Last Admin: 02/19/21 21:34 Dose: 5 mg Documented by: Phenytoin (Phenytoin 100 Mg Capsule.Er) 100 mg PO TID [facility] Last Admin: 02/19/21 20:50 Dose: 100 mg Documented by: Quetiapine Fumarate (Quetiapine 100 Mg Tab) 100 mg PO BID [facility] Last Admin: 02/19/21 21:34 Dose: 100 mg Documented by: Tramadol HCl (Tramadol 50 Mg Tab) 50 mg PO BID [facility] Results - Results Labs/Vitals: Laboratory Last Values WBC 4.4 K/mm3 (4.5-11.0) L 02/17/21 23:26 RBC 5.22 M/mm3 (3.65-5.03) H 02/17/21 23:26 Hgb 12.6 gm/dl (11.8-15.2) 02/17/21 23:26 Hct 40.0 % (35.5-45.6) 02/17/21 23:26 MCV 77 fl (84-94) L 02/17/21 23:26 MCH 24 pg (28-32) L 02/17/21 23:26 MCHC 32 % (32-34) 02/17/21 23:26 RDW 17.0 % (13.2-15.2) H 02/17/21 23:26 Plt Count 171 K/mm3 (140-440) 02/17/21 23:26 Lymph % (Auto) 38.9 % (13.4-35.0) H 02/17/21 23:26 [place] % (Auto) 6.9 % (0.0-7.3) 02/17/21 23:26 Eos % (Auto) 4.2 % (0.0-4.3) 02/17/21 23:26 Baso % (Auto) 0.4 % (0.0-1.8) 02/17/21 23:26 Lymph # (Auto) 1.7 K/mm3 (1.2-5.4) 02/17/21 23:26 [place] # (Auto) 0.3 K/mm3 (0.0-0.8) 02/17/21 23:26 Eos # (Auto) 0.2 K/mm3 (0.0-0.4) 02/17/21 23:26 Baso # (Auto) 0.0 K/mm3 (0.0-0.1) 02/17/21 23:26 Seg Neutrophils % 49.6 % (40.0-70.0) 02/17/21 23:26 Seg Neutrophils # 2.2 K/mm3 (1.8-7.7) 02/17/21 23:26 Sodium 140 mmol/L (137-145) 02/17/21 23:26 Potassium 4.3 mmol/L (3.6-5.0) 02/17/21 23:26 Chloride 103.2 mmol/L (98-107) 02/17/21 23:26 Carbon Dioxide 26 mmol/L (22-30) 02/17/21 23:26 Anion Gap 15 mmol/L 02/17/21 23:26 BUN 19 mg/dL (9-20) 02/17/21 23:26 Creatinine 0.9 mg/dL (0.8-1.3) 02/17/21 23:26 Estimated GFR > 60 ml/min 02/17/21 23:26 BUN/Creatinine Ratio 21 % 02/17/21 23:26 Glucose 95 mg/dL (75-100) 02/17/21 23:26 POC Glucose 72 mg/dL (70-105) 02/20/21 07:45 Calcium 9.3 mg/dL (8.4-10.2) 02/17/21 23:26 Total Bilirubin 0.20 mg/dL (0.1-1.2) 02/17/21 23:26 AST 19 units/L (5-40) 02/17/21 23:26 ALT 15 units/L (7-56) 02/17/21 23:26 Alkaline Phosphatase 87 units/L (35-129) 02/17/21 23:26 Total Protein 6.1 g/dL (6.3-8.2) L 02/17/21 23:26 Albumin 3.6 g/dL (3.9-5) L 02/17/21 23:26 Albumin/Globulin Ratio 1.4 % 02/17/21 23:26 Triglycerides 105 mg/dL (2-149) 02/17/21 23: Cholesterol 110 mg/dL (50-199) 02/17/21 23: LDL Cholesterol Direct 62 mg/dL (50-130) 02/17/21 23: HDL Cholesterol 38 mg/dL (40-59) L 02/17/21 23: Cholesterol/HDL Ratio 2.89 % 02/17/21 23: TSH 1.380 mlU/mL (0.270-4.200) 02/17/21 23: [place] 0.1 mmol/L (0.0-1.2) 02/17/21 23: Hepatitis A IgM Ab Non-reactive (NonReactive) 02/17/21 23: Hep Bs Antigen Non-reactive (Negative) 02/17/21 23: Hep B Core IgM Ab Non-reactive (NonReactive) 02/17/21 23: Hepatitis C Antibody Non-reactive (NonReactive) 02/17/21 23: Last Vital Signs Temp 98.0 F 02/19/21 21:55 Pulse 62 02/19/21 21:55 Resp 18 02/19/21 21:55 BP 148/95 02/19/21 21:55 Pulse Ox 96 02/19/21 21:55
[2021-02-20] MEDS: PHENYTOIN 100 MG CAPSULE.ER PO SCH ×3 (09:17→20:43)
[2021-02-20] MEDS: FLUoxetine 20 MG CAP PO SCH (09:17)
[2021-02-20] MEDS: traMADol 50 MG TAB PO SCH ×2 (09:18→21:05)
[2021-02-20] MEDS: QUEtiapine 100 MG TAB PO SCH ×2 (09:18→21:06)
[2021-02-20] MEDS: LISINOPRIL 40 MG TAB PO SCH (09:18)
--- NOTE | 2021-02-20 14:08 | Progress Note ---
Assessment and Plan Assessment and plan: -- Hypertension Current Visit: Yes Status: Acute Well controlled , continue current antihypertensives And supportive care --Obesity BMI 30.4 Current Visit: Yes Status: Acute Diet modification, exercise as tolerated And weight reduction when medically stable --History of schizophrenia Current Visit: Yes Status: Acute Continue medical management. Management per psych. --DVT prophylaxis; SCDs while resting We will closely monitor the patient and adjust management as needed Plan of care reviewed with the patient and his nurse History Interval history: I seen and examined the patient today in [facility] Patient feels better wants to go home No new complaints Vital signs noted Hospitalist Physical - Constitutional Vitals: Temp Pulse Resp BP Pulse Ox 98.3 F 68 18 148/103 97 02/20/21 08:24 02/20/21 09:18 02/20/21 08:24 02/20/21 09:18 02/20/21 08:24 General appearance: Present: obese - EENT Eyes: Present: PERRL, EOM intact - Neck Neck: Present: supple, normal ROM - Respiratory Respiratory effort: normal Respiratory: bilateral: diminished, negative: rales, rhonchi, wheezing - Cardiovascular Rhythm: regular Heart Sounds: Present: S1 & S2 - Extremities Extremities: no ischemia, No edema - Abdominal General gastrointestinal: soft, non-tender, non-distended, normal bowel sounds - Integumentary Integumentary: Present: clear, warm - Psychiatric Psychiatric: appropriate mood/affect, cooperative - Neurologic Neurologic: moves all extremities Results - Labs CBC & Chem 7: 02/17/21 23:26 02/17/21 23:26 Labs: Laboratory Last Values WBC 4.4 K/mm3 (4.5-11.0) L 02/17/21 23:26 RBC 5.22 M/mm3 (3.65-5.03) H 02/17/21 23:26 Hgb 12.6 gm/dl (11.8-15.2) 02/17/21 23: Hct 40.0 % (35.5-45.6) 02/17/21 23:26 MCV 77 fl (84-94) L 02/17/21 23:26 MCH 24 pg (28-32) L 02/17/21 23: MCHC 32 % (32-34) 02/17/21 23: RDW 17.0 % (13.2-15.2) H 02/17/21 23:26 Plt Count 171 K/mm3 (140-440) 02/17/21 23:26 Lymph % (Auto) 38.9 % (13.4-35.0) H 02/17/21 23:26 [place] % (Auto) 6.9 % (0.0-7.3) 02/17/21 23: Eos % (Auto) 4.2 % (0.0-4.3) 02/17/21 23: Baso % (Auto) 0.4 % (0.0-1.8) 02/17/21 23: Lymph # (Auto) 1.7 K/mm3 (1.2-5.4) 02/17/21 23: [place] # (Auto) 0.3 K/mm3 (0.0-0.8) 02/17/21 23: Eos # (Auto) 0.2 K/mm3 (0.0-0.4) 02/17/21 23: Baso # (Auto) 0.0 K/mm3 (0.0-0.1) 02/17/21 23: Seg Neutrophils % 49.6 % (40.0-70.0) 02/17/21 23: Seg Neutrophils # 2.2 K/mm3 (1.8-7.7) 02/17/21 23:26 Sodium 140 mmol/L (137-145) 02/17/21 23:26 Potassium 4.3 mmol/L (3.6-5.0) 02/17/21 23:26 Chloride 103.2 mmol/L (98-107) 02/17/21 23:26 Carbon Dioxide 26 mmol/L (22-30) 02/17/21 23:26 Anion Gap 15 mmol/L 02/17/21 23:26 BUN 19 mg/dL (9-20) 02/17/21 23:26 Creatinine 0.9 mg/dL (0.8-1.3) 02/17/21 23:26 Estimated GFR > 60 ml/min 02/17/21 23:26 BUN/Creatinine Ratio 21 % 02/17/21 23:26 Glucose 95 mg/dL (75-100) 02/17/21 23:26 POC Glucose 72 mg/dL (70-105) 02/20/21 07:45 Calcium 9.3 mg/dL (8.4-10.2) 02/17/21 23:26 Total Bilirubin 0.20 mg/dL (0.1-1.2) 02/17/21 23:26 AST 19 units/L (5-40) 02/17/21 23:26 ALT 15 units/L (7-56) 02/17/21 23:26 Alkaline Phosphatase 87 units/L (35-129) 02/17/21 23:26 Total Protein 6.1 g/dL (6.3-8.2) L 02/17/21 23:26 Albumin 3.6 g/dL (3.9-5) L 02/17/21 23:26 Albumin/Globulin Ratio 1.4 % 02/17/21 23:26 Triglycerides 105 mg/dL (2-149) 02/17/21 23:26 Cholesterol 110 mg/dL (50-199) 02/17/21 23:26 LDL Cholesterol Direct 62 mg/dL (50-130) 02/17/21 23:26 HDL Cholesterol 38 mg/dL (40-59) L 02/17/21 23:26 Cholesterol/HDL Ratio 2.89 % 02/17/21 23:26 TSH 1.380 mlU/mL (0.270-4.200) 02/17/21 23:26 [place] 0.1 mmol/L (0.0-1.2) 02/17/21 23:26 Hepatitis A IgM Ab Non-reactive (NonReactive) 02/17/21 23:26 Hep Bs Antigen Non-reactive (Negative) 02/17/21 23:26 Hep B Core IgM Ab Non-reactive (NonReactive) 02/17/21 23:26 Hepatitis C Antibody Non-reactive (NonReactive) 02/17/21 23:26 [place]/IV: Voiding Method Toilet Active Medications - Current Medications Current Medications: Generic Name Dose Route Start Last Admin Trade Name Freq PRN Reason Stop Dose Admin Fluoxetine HCl 20 mg 02/16/21 10:00 02/20/21 09:17 Fluoxetine 20 Mg Cap PO 20 mg DAILY TYREL Administration Lisinopril 40 mg 02/15/21 22:30 02/20/21 09:18 Lisinopril 40 Mg Tab PO 40 mg QDAY TYREL Administration Olanzapine 5 mg 02/15/21 23:00 02/19/21 21:34 Olanzapine 5 Mg Tab PO 5 mg HS TYREL Administration Phenytoin 100 mg 02/16/21 14:00 02/20/21 13:59 Phenytoin 100 Mg Capsule.Er PO 100 mg TID TYREL Administration Quetiapine Fumarate 100 mg 02/15/21 23:00 02/20/21 09:18 Quetiapine 100 Mg Tab PO 100 mg BID TYREL Administration Tramadol HCl 50 mg 02/20/21 10:00 02/20/21 09:18 Tramadol 50 Mg Tab PO 50 mg BID TYREL Administration
--- NOTE | 2021-02-21 08:13 | Discharge Summary ---
Providers - Providers Date of Admission: 02/15/21 21:23 Date of discharge: 02/21/21 Attending physician: LEXY NICHOLSON MD 02/19/21 13:55 Consult to Physician [CONS] Routine Comment: . Consulting Provider: NAEEM MEDINA Physician Instructions: . 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 The patients mood, cognition, behavior, motivation, compliance to treatment and appreciation on family/social support are improved and stabilized. At the time of discharge, the patient had no suicidal ideas, no homicidal ideas, no aggressive thoughts, no endangering behavior and no debilitating adverse effects. The patient agreed on the treatment plan, understood the risk, benefit, alternative treatment, potential consequence of no treatment, and gave informed consent. Disposition: - TO HOME OR SELFCARE Allergies/Adverse Reactions: Allergies risperidone [From Risperdal] Adverse Reaction (Intermediate, Verified 02/16/21 22:45) Unknown Vital Signs: Last Vital Signs Temp 98.4 F 02/20/21 21:05 Pulse 63 02/20/21 21:05 Resp 18 02/20/21 21:05 BP 156/103 02/20/21 21:05 Pulse Ox 96 02/20/21 21:05 Last Lab: Laboratory Last Values WBC 4.4 K/mm3 (4.5-11.0) L 02/17/21 23: RBC 5.22 M/mm3 (3.65-5.03) H 02/17/21 23: Hgb 12.6 gm/dl (11.8-15.2) 02/17/21 23: Hct 40.0 % (35.5-45.6) 02/17/21 23: MCV 77 fl (84-94) L 02/17/21 23: MCH 24 pg (28-32) L 02/17/21 23: MCHC 32 % (32-34) 02/17/21 23: RDW 17.0 % (13.2-15.2) H 02/17/21 23:26 Plt Count 171 K/mm3 (140-440) 02/17/21 23:26 Lymph % (Auto) 38.9 % (13.4-35.0) H 02/17/21 23:26 [place] % (Auto) 6.9 % (0.0-7.3) 02/17/21 23:26 Eos % (Auto) 4.2 % (0.0-4.3) 02/17/21 23:26 Baso % (Auto) 0.4 % (0.0-1.8) 02/17/21 23: Lymph # (Auto) 1.7 K/mm3 (1.2-5.4) 02/17/21 23: [place] # (Auto) 0.3 K/mm3 (0.0-0.8) 02/17/21 23:26 Eos # (Auto) 0.2 K/mm3 (0.0-0.4) 02/17/21 23:26 Baso # (Auto) 0.0 K/mm3 (0.0-0.1) 02/17/21 23:26 Seg Neutrophils % 49.6 % (40.0-70.0) 02/17/21 23: Seg Neutrophils # 2.2 K/mm3 (1.8-7.7) 02/17/21 23:26 Sodium 140 mmol/L (137-145) 02/17/21 23:26 Potassium 4.3 mmol/L (3.6-5.0) 02/17/21 23:26 Chloride 103.2 mmol/L (98-107) 02/17/21 23:26 Carbon Dioxide 26 mmol/L (22-30) 02/17/21 23:26 Anion Gap 15 mmol/L 02/17/21 23:26 BUN 19 mg/dL (9-20) 02/17/21 23:26 Creatinine 0.9 mg/dL (0.8-1.3) 02/17/21 23:26 Estimated GFR > 60 ml/min 02/17/21 23:26 BUN/Creatinine Ratio 21 % 02/17/21 23:26 Glucose 95 mg/dL (75-100) 02/17/21 23:26 POC Glucose 80 mg/dL (70-105) 02/21/21 06: Calcium 9.3 mg/dL (8.4-10.2) 02/17/21 23:26 Total Bilirubin 0.20 mg/dL (0.1-1.2) 02/17/21 23:26 AST 19 units/L (5-40) 02/17/21 23:26 ALT 15 units/L (7-56) 02/17/21 23:26 Alkaline Phosphatase 87 units/L (35-129) 02/17/21 23:26 Total Protein 6.1 g/dL (6.3-8.2) L 02/17/21 23:26 Albumin 3.6 g/dL (3.9-5) L 02/17/21 23:26 Albumin/Globulin Ratio 1.4 % 02/17/21 23:26 Triglycerides 105 mg/dL (2-149) 02/17/21 23:26 Cholesterol 110 mg/dL (50-199) 02/17/21 23:26 LDL Cholesterol Direct 62 mg/dL (50-130) 02/17/21 23:26 HDL Cholesterol 38 mg/dL (40-59) L 02/17/21 23:26 Cholesterol/HDL Ratio 2.89 % 02/17/21 23:26 TSH 1.380 mlU/mL (0.270-4.200) 02/17/21 23:26 [place] 0.1 mmol/L (0.0-1.2) 02/17/21 23:26 Hepatitis A IgM Ab Non-reactive (NonReactive) 02/17/21 23:26 Hep Bs Antigen Non-reactive (Negative) 02/17/21 23:26 Hep B Core IgM Ab Non-reactive (NonReactive) 02/17/21 23:26 Hepatitis C Antibody Non-reactive (NonReactive) 02/17/21 23:26 Core Measure Documentation - Palliative Care Palliative Care/ Comfort Measures: Not Applicable - Core Measures Any of the following diagnoses?: none (.) Exam - Constitutional Vitals: Temp Pulse Resp BP Pulse Ox 98.4 F 63 18 156/103 96 02/20/21 21:05 02/20/21 21:05 02/20/21 21:05 02/20/21 21:05 02/20/21 21:05 General appearance: Present: no acute distress - Cardiovascular Rhythm: regular Peripheral Pulses: within normal limits - Psychiatric Psychiatric: appropriate mood/affect Plan Activity: advance as tolerated Weight Bearing Status: Weight Bear as Tolerated Diet: regular Care Plan Goals: Maintain good and stable mental health. Plan of Treatment: The patient should be compliant with medications, not to use drugs and not to drink alcohol. The patient understands that if suicidal ideas, homicidal ideas, or any endangering thoughts arise, the patient should immediately seek for emergent assistance including but not limited to crisis hot line and emergency room. Follow up with outpatient Psychiatrist and PCP within 7 - 14 days of discharge. Follow up with: PRIMARY CARE,MD [Primary Care Provider] - 7 Days Prescriptions: lisinopriL [Zestril TAB] 40 mg PO QDAY 30 Days #30 tablet OLANzapine [ZyPREXA] 5 mg PO HS 30 Days #30 tablet
[2021-02-21 08:48] VITALS: BP 153/99
[2021-02-21] MEDS: PHENYTOIN 100 MG CAPSULE.ER PO SCH (08:55)
[2021-02-21] MEDS: traMADol 50 MG TAB PO SCH (09:00)
[2021-02-21] MEDS: FLUoxetine 20 MG CAP PO SCH (09:00)
[2021-02-21] MEDS: QUEtiapine 100 MG TAB PO SCH (09:00)
[2021-02-21] MEDS: LISINOPRIL 40 MG TAB PO SCH (09:01)
== END 2021-02-21 14:08 | disposition home or self-care (01) | DRG 885 ==
LOC: UNDOADMIN 05:48 → 3A 05:48 → 5A 21:23
PROVIDERS: ADMIT Psychiatry & Neurology Psychiatry; ATTEND Psychiatry & Neurology Psychiatry
DX: F20.9 Schizophrenia, unspecified (principal); I10 Essential (primary) hypertension; E66.9 Obesity, unspecified; Z68.30 Body mass index [BMI] 30.0-30.9, adult; Z79.899 Other long term (current) drug therapy
CPT/HCPCS: 36415; 80048; 80053; 80061; 80074; 80178; 82962; 84443; 85025; G0378